=== PATIENT | male | born 1970 | race African-American/Black ===

== ENCOUNTER 2019-07-29 18:10 | Emergency (ER) | payer SELFPAY ==
[~2019-07-29] VITALS: Ht 185.4 cm; Wt 92.0 kg
[2019-07-29] MEDS ORDERED: SODIUM CHLORIDE 0.9% 1,000 ML IV ONE (21:42)
[2019-07-29] MEDS ORDERED: FAMOTIDINE 20MG/2ML VIAL IV STA (21:42)
[2019-07-29] MEDS ORDERED: ONDANSETRON HCL 4MG/2ML INJ IV STA (21:42)
[2019-07-29 22:38] LABS: BASOPHILS % 0.5 % (0.0-2.0); EOSINOPHILS % 0.2 % (0.0-5.0); HEMOGLOBIN. 15.4 g/dL (14.0-18.0); LYMPHOCYTES % 17.1 % (20.0-50.0); MEAN CORPUSCULAR HEMOGLOBIN 28.9 pg (28.0-32.0); MEAN CORPUSCULAR VOLUME 86.7 fL (80.0-94.0); MONOCYTES % 7.3 % (2.0-8.0); NEUTROPHILS % 74.9 % (40.0-76.0); PLATELET 176 x1000/uL (130-400); RED BLOOD CELL COUNT 5.31 mill/uL (4.7-6.1); RED CELL DISTRIBUTION WIDTH 13.6 % (11.6-14.6)
[2019-07-29 22:45] LABS: CHLORIDE 105 mEq/L (98-107); PROTHROMBIN TIME 10.4 sec (9.6-11.0)
[2019-07-29 22:48] LABS: ETHANOL BLOOD < 10 mg/dL
[2019-07-29 22:53] LABS: CLARITY URINE CLEAR (CLEAR); COLOR URINE YELLOW (YELLOW); KETONES URINE 3+ (NEGATIVE); LEUKOCYTE ESTERASE URINE TRACE (NEGATIVE); NITRITE URINE NEGATIVE (NEGATIVE); OCCULT BLOOD URINE NEGATIVE (NEGATIVE); PH URINE 5.5 (4.5-8.0); PROTEIN URINE TRACE (NEGATIVE); SPECIFIC GRAVITY URINE 1.031 (1.005-1.030)
[2019-07-29 23:11] LABS: METHADONE URINE SCREEN NEGATIVE (NEGATIVE); OPIATES URINE SCREEN NEGATIVE (NEGATIVE)
[2019-07-29 23:12] LABS: *BARBITURATES SCREEN URINE NEGATIVE (NEGATIVE); *BENZODIAZEPINES SCREEN URINE NEGATIVE (NEGATIVE); *COCAINE SCREEN URINE NEGATIVE (NEGATIVE); CANNABINOID URINE SCREEN NEGATIVE (NEGATIVE); PHENCYCLIDINE URINE SCREEN NEGATIVE (NEGATIVE)
[2019-07-29 23:13] LABS: *AMPHETAMINES SCREEN URINE NEGATIVE (NEGATIVE)
[2019-07-30] MEDS ORDERED: MORPHINE SULFATE 4 MG/ML CPJ (NOT FOR IM USE) IV ONE (01:00)
[2019-07-30] MEDS ORDERED: METOCLOPRAMIDE HCL 10MG/2ML VIAL IV ONE (01:00)
[2019-07-30 03:45] VITALS: BP 144/81
== END 2019-07-30 04:26 | disposition home or self-care (01) ==
LOC: ER 18:41
DX: K29.70 Gastritis, unspecified, without bleeding (principal); I10 Essential (primary) hypertension
CPT/HCPCS: 36415; 76700; 80053; 80305; 80320; 81003; 83690; 85025; 85610; 93005; 96361; 96374; 96375; 99284; J2270; J2405; J2765; J3490; J7030; Z7610; G0480

== ENCOUNTER 2022-05-20 04:26 | Emergency (ER) | payer MEDICAID ==
[~2022-05-20] VITALS: Ht 182.9 cm; Wt 86.0 kg
[2022-05-20] MEDS ORDERED: LIDOCAINE HCL/EPINEPHRINE 1%-EPI 1:100,000 20 ML VIAL INFIL ONE (06:30)
[2022-05-20] MEDS ORDERED: HYDROCODONE/ACETAMINOPHEN 5/325MG TABLET PO ONE (06:30)
[2022-05-20] MEDS ORDERED: BACITRACIN ZINC OINT UDPKT TOP ONE (06:30)
[2022-05-20] MEDS ORDERED: TETANUS, DIPHTHERIA, PERTUSSIS VAC/PF 0.5ML (>10YR OLD) IM ONE (06:30)
[2022-05-20] MEDS ORDERED: LIDOCAINE HCL/EPINEPHRINE 1%-EPI 1:100,000 10 ML VIAL INFIL NR (06:45)
[2022-05-20 07:19] VITALS: BP 154/80
[2022-05-20] MEDS ORDERED: CEPH500C2 MT (07:33)
[2022-05-20] MEDS ORDERED: IBUP-2029 MT (07:33)
[2022-05-20] MEDS ORDERED: ONDANSETRON 4MG ODT PO ONE (07:45)
== END 2022-05-20 08:24 | disposition home or self-care (01) ==
LOC: ER 04:26
DX: S51.812A Laceration without foreign body of left forearm, initial encounter (principal); W26.0XXA Contact with knife, initial encounter; Y93.89 Activity, other specified; Y92.480 Sidewalk as the place of occurrence of the external cause
CPT/HCPCS: 12004; 90471; 90715; 99283; J3490

== ENCOUNTER 2022-06-06 09:29 | Emergency (ER) | payer MEDICAID ==
[~2022-06-06] VITALS: Ht 182.9 cm; Wt 87.0 kg
[~2022-06-06 09:29] MED LIST: CEPH500C2 MT; IBUP-2029 MT
[2022-06-06 09:45] VITALS: BP 147/93
[2022-06-06] MEDS ORDERED: BACITRACIN ZINC OINT UDPKT TOP ONE (12:00)
== END 2022-06-06 12:12 | disposition home or self-care (01) ==
LOC: ER 09:29
DX: S51.811D Laceration without foreign body of right forearm, subsequent encounter (principal); Z48.02 Encounter for removal of sutures; X58.XXXD Exposure to other specified factors, subsequent encounter
CPT/HCPCS: 99282